=== PATIENT | male | born 1980 | race Caucasian/White ===

== ENCOUNTER 2023-03-22 06:12 | Emergency (ER) | payer OTHER, SELFPAY ==
[2023-03-22 06:13] VITALS: BP 136/87; PULSE 82; RESP 18; TEMP 37.2; O2SAT 98; BMI 26.3
[2023-03-22] MEDS: 0.9% Normal Saline 1,000 ML 1000 ML IV (06:32)
[2023-03-22] MEDS: Dicyclomine 10 MG Capsule 20 MG PO (06:32)
[2023-03-22] MEDS: Ondansetron 4 MG/2 ML Vial IV (06:32)
[2023-03-22 06:33] LABS: Absolute Lymphocyte Count 1.04 X10^3/uL (0.83-4.51); Absolute Neutrophil Count 8.6 X10^3/uL (2.0-7.7); Basophil# 0.08 X10^3/uL; Basophil% 0.7 % (0-1); Eosinophil# 0.14 X10^3/uL; Eosinophils% 1.3 % (0-5); Hematocrit 50.3 % (40-54); Hemoglobin 17.1 g/dL (13.0-16.5); Lymphocyte # 1.04 X10^3/ul (0.83-4.51); Lymphocyte % 9.4 % (19-41); Mean Corpuscular Hgb 29.8 pg (27.0-32.0); Mean Corpuscular Volume 87.8 fL (80-94); Mean Platelet Vol. 9.1 fl (6.2-12.0); NRBC Flagged by Analyzer 0 % (0-5); Neutrophil # 8.63 X10^3/uL (2.7-7.7); Neutrophil % 78.3 % (47-70); Platelet Count 201 K/mm3 (150-450); RBC Distribution Width CV 12.6 % (11.6-14.6); RBC Distribution Width SD 40.5 fl (35.1-43.9); Red Blood Count 5.73 M/mm3 (4.6-6.2)
--- NOTE | 2023-03-22 06:49 | EDS_ITS ---
HPI HPI - GI History of Present Illness Chief Complaint: Nausea/Vomiting/Diarrhea Informant: patient Abdominal Pain/Flank Pain Onset: Days (3) Nausea/Vomiting/Emesis GI Symptom: Positive for Nausea and Vomiting (Couple days ago but none since) Diarrhea/Melena/Hematochezia GI Symptom: Positive for Diarrhea; Negative for Melena or Hematochezia Onset: Days (3) Stool Quality: Positive for Watery; Negative for Maroon or BRB per rectum Severity: Moderate Associated Symptoms Associated Symptoms: Negative for Dysuria, Frequency, Hematuria or Urgency Narrative Narrative: Patient started having nausea and some periumbilical abdominal cramping followed by vomiting several days ago, diarrhea that has persisted without any more vomiting, and occasional recurrent cramps. No jaundice, high fevers or chills although he has had some low-grade temperatures off and on, and feeling like he is having trouble keeping himself hydrated. No known sick contacts. No travel out of the area recently. No recent antibiotics for anything related or unrelated, he states he remembered eating breakfast with a friend as the last meal that he had before he started feeling poorly, but his friend did not get sick. He denies any known suspicious food intake otherwise, such as undercooked meats that he knows of, or raw meats or fish. No new water source ingestion. PFSH PFSH Medical History no medical history no medical history Home Medications dicyclomine 10 mg capsule 20 mg (2 x 10 mg) PO Q6H PRN PRN abdominal pain #20 CAPSULES 03/22/23 [Rx Last Taken Unknown] diphenoxylate-atropine 2.5 mg-0.025 mg tablet (Lomotil) 1 - 2 tab PO .qid PRN diarrhea 2 days #16 tabs 03/22/23 [Rx Last Taken Unknown] ondansetron 4 mg disintegrating tablet 8 mg (2 x 4 mg) PO Q8H PRN PRN Nausea #20 tabs 03/22/23 [Rx Last Taken Unknown] Allergy/AdvReac Type Severity Reaction Status Date / Time No Known Allergies Allergy Verified 03/22/23 06:16 Social History Smoking Status: Never smoker ROS ROS ED Constitutional Constitutional ED: Reports as per HPI, fever(s) and malaise; Denies chills Eyes Eyes: Denies change in vision or diplopia ENT ENT ED: Denies rhinorrhea or sore throat Cardiovascular Cardiovascular: Denies chest pain or palpitations Respiratory/Chest Respiratory/Chest: Denies cough or dyspnea Gastrointestinal Gastrointestinal: Reports abdominal pain, diarrhea, nausea and vomiting; Denies hematemesis or hematochezia Genitourinary Genitourinary ED: Denies dysuria or hematuria Musculoskeletal Musculoskeletal: Denies back pain or neck pain Integumentary Denies abscess or rash Neurologic Neurologic: Denies headache(s), paresthesias or weakness Psychiatric Psychiatric: Denies anxiety or suicidal thoughts EXAM Physical Exam Const Vital Signs: 03/22/23 06:13 Temperature 99.0 F Temperature Source Oral Pulse Rate 82 Respiratory Rate 18 Blood Pressure 136/87 H Blood Pressure Mean 103 Pulse Ox 98 Oxygen Delivery Method Room Air Positive well nourished and well developed General Appearance ED: well developed and NAD HEENT Reports moist mucous membranes normocephalic and atraumatic Eyes PERRL and EOMs intact bilaterally Neck full ROM and supple Resp normal respiratory effort and clear to auscultation bilaterally Cardio regular rate, regular rhythm and no murmurs Rate: Negative for tachycardic GI non-distended GI Narrative: Very mild left upper quadrant tenderness without guarding or rebound tenderness, otherwise benign abdomen without distention Auscultation: normoactive bowel sounds Palpation: soft Back/Spine no CVA tenderness General Back: other FROM Extremity normal to inspection General Extremety ED: Negative for edema, pulses abnormal or tenderness General Extremity: Negative for edema or pulses abnormal Neuro oriented x3, CN's II-XII intact bilaterally and no sensory deficits noted Sensorium / Orientation: awake and alert Motor Exam: strength 5/5 throughout Skin no rashes or lesions noted and no wounds MDM MDM MDM Narrative Medical decision making narrative: Suspect viral etiology here. Discussed with the patient that to rule out bacterial etiologies, it would be helpful to send a stool specimen. So far during his visit he has not been able to have any diarrhea. He was treated with IV fluids, Zofran, dicyclomine. His white blood count is at the high end of the normal range, his electrolytes and liver function are noted. Very slightly abnormal total bilirubin in context of a benign upper abdomen and no other abnormal liver enzymes is nonspecific, Gilbert's disease is in the differential diagnosis; no suspicion for hemolysis given his hemoglobin is 17.1. Supportive care and close outpatient follow-up advised for what is probably viral in etiology, we discussed reasons to return he is comfortable with this plan and will prescribe him Zofran and dicyclomine to use as needed, in addition to Lomotil. Lab Data Attestation: I reviewed the patient's lab results. Labs: Laboratory Results - last 24 hr 03/22/23 06:28 WBC 11.0 RBC 5.73 Hgb 17.1 H Hct 50.3 MCV 87.8 MCH 29.8 MCHC 34.0 RDW Std Deviation 40.5 RDW Coeff of Ruth 12.6 Plt Count 201 MPV 9.1 Immature Gran % (Auto) 0.300 Neut % (Auto) 78.3 H Lymph % (Auto) 9.4 L [place] % (Auto) 10.0 Eos % (Auto) 1.3 Baso % (Auto) 0.7 Absolute Neuts (auto) 8.6 H Absolute Lymphs (auto) 1.04 Nucleated RBC % 0 Sodium 134 L Potassium 3.7 Chloride 100 Carbon Dioxide 25.0 Anion Gap 9 BUN 19 H Creatinine 0.96 Estim Creat Clear Calc 102.45 Est GFR (MDRD) Af Amer 110 Est GFR (MDRD) Non-Af 91 BUN/Creatinine Ratio 19.9 Glucose 112 H Calcium 8.8 Total Bilirubin 1.30 H AST 29 ALT 22 Alkaline Phosphatase 95 Total Protein 6.8 Albumin 3.4 Globulin 3.4 Albumin/Globulin Ratio 1.0 Discharge Plan Triage Chief Complaint: Nausea/Vomiting/Diarrhea ED Provider: Black Lu Dx/Rx/DC Orders Clinical Impression: Gastroenteritis Instructions: ED Gastroenteritis, Viral (Adult) Prescriptions: New diphenoxylate-atropine [Lomotil] 2.5-0.025 mg tablet 1 - 2 tab PO .qid PRN (Reason: diarrhea) 2 Days Qty: 16 0RF ondansetron [ondansetron] 4 mg tablet,disintegrating 8 mg PO Q8H PRN PRN (Reason: Nausea) Qty: 20 0RF dicyclomine 10 mg capsule 20 mg PO Q6H PRN PRN (Reason: abdominal pain) Qty: 20 0RF Primary Care Provider: Care Physician,No Primary Referrals: [facility] Doctor,Out of [Non-Staff] - 3-5 Days if not improving (Even if you improve make sure you follow-up within the next week or 2 to have repeat liver enzymes to ensure normalization.) Disposition Disposition: Home, Self Care
[2023-03-22 06:51] LABS: AST(SGOT) 29 U/L (15-37); Alanine Aminotransfer ALT/SGPT 22 U/L (16-61); Albumin, Serum 3.4 g/dL (3.2-5.0); Alkaline Phosphatase 95 U/L (45-117); Anion Gap 9 (5-15); BUN 19 mg/dL (7-18); BUN/Creat Ratio 19.9 RATIO (10-20); Calcium,Total 8.8 mg/dL (8.5-10.1); Chloride 100 mmol/L (98-107); Creatinine, Serum 0.96 mg/dL (0.70-1.30); EST Glomerular Filtration Rate 91 mL/min (>60); Est Glom Filt Rate - Afr Amer 110 mL/min (>60); Estimated Creatinine Clearance 102.45 ml/min; Globulin 3.4 g/dL (2.2-4.2); Glucose 112 mg/dL (74-106); Potassium 3.7 mmol/L (3.5-5.1); Protein, Total 6.8 g/dL (6.4-8.2); Sodium Level 134 mmol/L (136-145)
[2023-03-22 07:36] VITALS: BP 122/78; PULSE 57; RESP 18; TEMP 36.9; O2SAT 97
== END 2023-03-22 08:35 | disposition home or self-care (01) ==
PROVIDERS: Emergency Provider Emergency Medicine; Visit Provider Emergency Medicine
DX: K52.9 Noninfective gastroenteritis and colitis, unspecified (principal)
CPT/HCPCS: 80053; 85025; 96361; 96374; 99284; J7030; J2405